=== PATIENT | female | born 1965 | race Caucasian/White ===

== ENCOUNTER 2023-03-18 17:01 | Emergency (ER) | payer BC, SELFPAY ==
[2023-03-18 17:02] VITALS: BP 153/91
[2023-03-18] MEDS: TYLENOL 1000 MG PO (18:07)
--- NOTE | 2023-03-18 18:09 | ED.GENMED ---
History of Present Illness
General
Chief Complaint: Fall
Source: patient
Time Seen by Provider: 03/18/23 17:11
Travel History
Have you had any contact with someone who has COVID-19?: No
Do you have any symptoms of coronavirus? Fever > 100 degrees, chills, cough, shortness of breath, sore throat, loss of taste or smell, muscle aches, or headache?: No
History of Present Illness
History of Present Illness:
58-year-old female with past medical history of hypertension and hypothyroid presents to the emergency department for evaluation after she was on her staircase walking down and started to cough causing her to accidentally slip and fall down
approximately 5-6 steps sliding on her buttock and hitting the back of her head on the ground. Patient states she attempted to grab the railing but was unable to hold herself up. Patient states that shortly after the injury she started to complain
of a headache, feeling tired, mild back pain and left upper extremity wrist pain. Denies any LOC, vomiting, visual changes, focal weakness or numbness or any other extremity related injuries. Patient did not take anything for her symptoms prior to
arrival.
Past History
Past History
ED Past Medical History: HTN and Hyperthyroidism
ED Past Surgical History: Other
Social History
Tobacco: Non-smoker
Alcohol: Occasional
Drug: None
Personal:
Living: with family
Review of Systems
Review of Systems
All Other Systems: ROS reviewed and negative except as documented in HPI and ROS
Phy Exam
Physical Exam
Physical Exam:
VITAL SIGNS: Vital signs reviewed, cooperative
DISTRESS: No active disease
EYES: Pupils reactive, no orbital trauma
NOSE: No deformity or epistaxis
FACE AND SCALP: No scalp or facial trauma, external canals no blood TMs normal bilateral
NECK: Supple nontender
BACK: Mild tenderness to palpation within the lumbar region but this pain is diffuse and nonfocal, pelvis stable to compression
RESPIRATORY: No distress, breath sounds normal, no tender chest wall
ABDOMEN: Soft nontender
SKIN: Skin intact no bleeding, color normal
EXTREMITIES: Nontender
NEUROLOGICAL: Alert, oriented, no motor deficits
PSYCH: Mood affect normal
Scores
Heart Failure Risk
Heart Failure Risk Score: Not Applicable
Heart Score for Chest Pain Patients
STEMI patient?: Not applicable
Withdrawal Assessment of Alcohol
Withdrawal Assessment Completed?: Not applicable
Course
Orders/Labs/Results
Orders:
Orders
03/18/23 17:51
CT Head W/o Iv Contrast Urgent
Comment:
Reason For Exam: fall down stairs, head injury
Acetaminophen [Tylenol] 1,000 mg PO NOW STA
03/18/23 18:09
CR Wrist - Left Min 3 Views Urgent
Comment:
Reason For Exam: fall, pain over distal radial aspect
Vital Signs
Initial and Last Documented VS:
Initial Vital Signs
Temp Pulse Resp BP Pulse Ox
98.7 F 71 18 153/91 98
03/18/23 17:02 03/18/23 17:02 03/18/23 17:02 03/18/23 17:02 03/18/23 17:02
Last Documented Vital Signs
Temp Pulse Resp BP Pulse Ox
98.7 F 71 18 153/91 98
03/18/23 17:02 03/18/23 17:02 03/18/23 17:02 03/18/23 17:02 03/18/23 17:02
MDM/Problems Addressed
Differential Diagnosis Includes:
Accidental trip and fall, superficial head injury, concussion, intracranial bleeding, calvarial fracture, left wrist sprain, left wrist fracture
MDM/Problems Addressed:
58-year-old female presenting the emergency department for evaluation following accidental fall resulting in head injury and left wrist pain. Ultimately I suspect a concussion as likely cause of symptoms. I also have minimal suspicion for left
wrist fracture as patient had full range of motion and no focal areas of tenderness to palpation. Will obtain a CT of the head and x-ray. Tylenol for pain. Reassessment following.
*Radiology
Radiology exam reviewed: preliminary read by ED provider (No fracture) and radiology read reviewed
*Pulse Oximetry
Patient hypoxic: no
*Critical Care Note
Total Time (30-74mins, 75-104mins- exclusive of procedures): Not Applicable
Patient Management
Escalation/DeEscalation of care consider admission/obs:
Patient's x-ray was negative for any acute pathology. Head CT was also within normal limits. Patient is otherwise stable for discharge home. Concussion management discussed. Patient aware of return precautions. Otherwise stable for discharge
home.
ED Attending Note
-
Portions of this chart may have been created with voice recognition software.� Occasional wrong word or��sound alike� substitutions may have occurred due to the inherent limitations of voice recognition software.
Discharge Plan
Departure
Patient Disposition: Home (Routine Discharge)
Date of Disposition: 03/18/23
Time of Disposition: 19:13
Patient with high blood pressure during this ER visit?: Yes
Discharge Problem:
Fall down stairs, Head injury, Wrist pain, left
Instructions: Concussion, Adult (DC)
Prescriptions:
No Action
escitalopram oxalate 5 mg Tablet
5 mg PO DAILY
lisinopril 10 mg Tablet
10 mg PO BID
Referrals:
Jacinta Zabala MD [Family Provider] -
Interventions
Interventions:
*Risk Screen - Suicide Last Done: 03/18/23 17:02
*General Assessment Last Done: 03/18/23 17:02
*Neglect/Abuse Screening Last Done: 03/18/23 17:30
ED- Fall Risk Assessment Last Done: 03/18/23 17:30
*ED COVID-19 Vaccine History Last Done: 03/18/23 17:02
ED-Musculoskeletal Assessment Last Done: 03/18/23 17:30
ED- Neurological Assessment Last Done: 03/18/23 17:30
ED-Skin Assessment Last Done: 03/18/23 17:30
[2023-03-18 20:16] VITALS: BP 149/99
== END 2023-03-18 19:20 | disposition home or self-care (01) ==
LOC: EMR 17:01
PROVIDERS: EMERGENCY PHYSICIAN Emergency Medicine; FAMILY PHYSICIAN Family Medicine
DX: S09.90XA Unspecified injury of head, initial encounter (principal); M25.532 Pain in left wrist; W10.9XXA Fall (on) (from) unspecified stairs and steps, initial encounter; Y93.01 Activity, walking, marching and hiking; I10 Essential (primary) hypertension; E03.9 Hypothyroidism, unspecified
CPT/HCPCS: 99284; 70450; 73110

== ENCOUNTER → 2023-06-07 08:41 | Outpatient (REF) | payer BC, SELFPAY | LOC: WDC 08:41 | PROVIDERS: ATTENDING PHYSICIAN Internal Medicine | DX: Z12.31 Encounter for screening mammogram for malignant neoplasm of breast (principal) | CPT/HCPCS: 77063; 77067 ==

== ENCOUNTER → 2023-06-15 09:33 | Outpatient (REF) | payer BC, SELFPAY | LOC: WDC 09:33 | PROVIDERS: ATTENDING PHYSICIAN Internal Medicine; FAMILY PHYSICIAN Family Medicine | DX: R92.8 Other abnormal and inconclusive findings on diagnostic imaging of breast (principal) | CPT/HCPCS: 76642 ==

== ENCOUNTER 2024-04-20 06:21 | Day surgery (SDC) | payer OTHER, SELFPAY | END 2024-04-20 14:41 | disposition home or self-care (01) | LOC: GI 06:21 | PROVIDERS: ATTENDING PHYSICIAN Internal Medicine Gastroenterology | DX: Z12.11 Encounter for screening for malignant neoplasm of colon (principal); C20 Malignant neoplasm of rectum; K63.5 Polyp of colon; Q43.8 Other specified congenital malformations of intestine; Z86.0101 Personal history of adenomatous and serrated colon polyps | CPT/HCPCS: 45385; 45380; 45381; 88305; 88342 ==

== ENCOUNTER → 2024-05-02 11:43 | Outpatient (REF) | payer OTHER, SELFPAY | LOC: RAD 11:43 | PROVIDERS: ATTENDING PHYSICIAN Surgery | DX: C20 Malignant neoplasm of rectum (principal) | CPT/HCPCS: 71260; 74160; Q9967 ==

== ENCOUNTER 2024-05-03 06:14 | Day surgery (SDC) | payer BC, OTHER, SELFPAY | END 2024-05-03 11:38 | disposition home or self-care (01) | LOC: GI 06:14 | PROVIDERS: ATTENDING PHYSICIAN Surgery | DX: C20 Malignant neoplasm of rectum (principal) | CPT/HCPCS: 45330 ==

== ENCOUNTER → 2024-05-04 09:39 | Outpatient (REF) | payer OTHER, SELFPAY | LOC: MRI 3T 09:39 | PROVIDERS: ATTENDING PHYSICIAN Surgery; FAMILY PHYSICIAN Family Medicine | DX: C20 Malignant neoplasm of rectum (principal) | CPT/HCPCS: 72197; A9575 ==

== ENCOUNTER → 2024-05-08 15:08 | Outpatient (REF) | payer OTHER, SELFPAY | LOC: WDC 15:08 | PROVIDERS: ATTENDING PHYSICIAN Family Medicine | DX: Z12.31 Encounter for screening mammogram for malignant neoplasm of breast (principal) | CPT/HCPCS: 77063; 77067 ==

== ENCOUNTER → 2024-11-13 08:05 | Outpatient (REF) | payer OTHER, SELFPAY | LOC: RAD 08:05 | PROVIDERS: ATTENDING PHYSICIAN Internal Medicine Gastroenterology; FAMILY PHYSICIAN Family Medicine | DX: K76.0 Fatty (change of) liver, not elsewhere classified (principal) | CPT/HCPCS: 76700 ==

== ENCOUNTER → 2025-01-22 09:32 | Outpatient (REF) | payer OTHER, SELFPAY | LOC: HWRAD 09:32 | PROVIDERS: ATTENDING PHYSICIAN Family Medicine | DX: N95.1 Menopausal and female climacteric states (principal) | CPT/HCPCS: 77080 ==